=== PATIENT | male | born 1940 | race Caucasian/White ===

== ENCOUNTER → 2021-01-05 | Outpatient (CLI) | payer MEDICARE, SELFPAY ==
--- NOTE | 2021-01-05 | GASB_PTH ---
PATIENT: DANETTE SY Jr. LOC: [facility]#:[id number] AGE/SX: 80/M ROOM: RE01/05/[address]: Dr. Amilcar Sanchez MD : 1940 BED: DIS: 01/05/2021 SPEC #: [id number] RECD: 01/05/21 15:18 STATUS: MEREDITH RESherrie #: [id number] KELI: 01/05/21 00:[address]: Amilcar Sanchez DEPT: SURGICAL PATHOLOGY RECD BY: Corby Macias Tissues: A - Gastric mucous membrane B - Gastric mucous membrane C - Gastric mucous membrane Procedures: Special Stain Group II Surgery Specimen Level IV Alcian Blue/PAS (control) HEADER OPERATION: EGD with biopsy PRE-OP DIAGNOSIS: Duodenal nodes on CT scan TISSUE SUBMITTED: A ? Ampulla biopsy, B ? Antral biopsy H/H, C ? Gastric nodule MICROSCOPIC DIAGNOSIS A. Ampulla, biopsy: A fragment of duodenal mucosa, no pathologic diagnosis. B. Antral biopsy: Mild gastritis. Focal intestinal metaplasia. See microscopic description and comment. C. Gastric nodule: A fragment of gastric mucosa with acute and chronic inflammation and lymphoid aggregate, favor benign. Focal changes suggestive of mixed hyperplastic/fundic gland polyp. See comment. SJ:rg 01/07/2021 COMMENT B. The results of immunohistochemistry for Helicobacter pylori will be reported separately ([id number]). Alcian blue/PAS stain with matched control is used in the evaluation of the specimen. C. Immunohistochemistry ([id number]) supports the above diagnosis. Correlation with clinical, radiologic, endoscopic findings and appropriate follow up are necessary. Case has been reviewed in consultation with Dr. Richards who concurs with the above diagnosis. IDC:AM MICROSCOPIC DESCRIPTION Slides are reviewed. B. The specimen shows fragments of gastric mucosa with chronic inflammatory cell infiltrates in the lamina propria consisting of lymphocytes and plasma cells, consistent with mild chronic gastritis. Focal intestinal metaplasia is noted. GROSS DESCRIPTION A - Received in fixative is one container labeled with the patient's name and designated ampulla biopsy. The specimen consists of one irregular fragment of light menchaca soft tissue that measures 0.4 x 0.3 x 0.1 cm. The specimen is totally submitted in one cassette. B - Received in fixative is one container labeled with the patient's name and designated antral biopsy. The specimen consists of two irregular fragments of light menchaca soft tissue that in aggregate measure 0.6 x 0.2 x 0.1 cm. The specimen is totally submitted in one cassette. C - Received in fixative is one container labeled with the patient's name and designated gastric nodule. The specimen consists of one irregular fragment of light menchaca soft tissue that measures 0.3 x 0.3 x 0.1 cm. The specimen is totally submitted in one cassette. / SJ:rg 01/06/21 TC:5 CPT: 35811 x3, 85304
--- NOTE | 2021-01-05 11:00 | IMM_PTH ---
PATIENT: DANETTE SY Jr. LOC: [facility] U#:[id number] AGE/SX: 80/M ROOM: RE01/05/[address]: Dr. Amilcar Sanchez MD : 1940 BED: DIS: 01/05/2021 SPEC #: [id number] RECD: 01/06/21 09:38 STATUS: MEREDITH REQ #: [id number] KELI: 01/05/21 11:[address]: Amilcar Sanchez DEPT: IMMUNOHISTOCHEMISTRY RECD BY: Kimmy Duque Tissues: B - Stomach, NOS C - Gastric mucous membrane Procedures: H Pylori (initial) CD20 (add) CD45 (add) CD5 (add) CD79A (add) CD3 (initial) PHYSICIAN & INSTITUTION [place] [id number] SPECIMEN INFORMATION: Tissue Source: B ? Antral biopsy, C ? Gastric nodule Clinical Info: Duodenal nodes on CT scan Specimen Number: [id number] B & C CPT code: 98530 x2, 40389 x4 METHODOLOGY: Deparaffinized sections of prefer/formalin-fixed tissue or PAP/DQ stained slides are incubated with monoclonal/polyclonal antibodies/oligonucleotide probes. Localization is made via biotin free immunoperoxidase method. Appropriate controls are performed and reacted as expected. Results on target cell population are indicated in the following table: RESULTS: ANTIBODY / CLONE RESULT Block B H Pylori (polyclonal) negative Block C CD3 (PS1) positive CD5 (SP10) positive CD20 (L26) positive CD45 (RP2/18) positive CD79a (11E3) positive These tests were developed and their performance characteristics determined by [facility]. They may not have been cleared or approved by the U.S. Food and Drug Administration. The FDA has determined that such clearance or approval is not necessary. The above immunohistochemical/dualISH markers are ordered and reviewed by the pathologist. INTERPRETATION: B. Antral biopsy: Negative for Helicobacter pylori organisms. C. Gastric nodule: Lymphoid aggregate, polytypic in nature, favor benign. SJ:adis 01/08/2021
== END | disposition home or self-care (01) ==
PROVIDERS: Visit Provider Surgery
DX: K29.70 Gastritis, unspecified, without bleeding (principal)
CPT/HCPCS: 88305; 88313; 88341; 88342

== ENCOUNTER 2021-07-06 12:02 | Day surgery (SDC) | payer MEDICARE, SELFPAY ==
[2021-07-06] VITALS (7 sets, daily range): BP systolic 132–143; BP diastolic 58–74; PULSE 56–65; RESP 14–20; TEMP 36.3–36.9; O2SAT 93–95; BMI 31.1
--- NOTE | 2021-07-06 07:24 | PCM.HP.BLA ---
History and Physical Date of Admission: 07/06/21 HISTORY AND PHYSICAL ? Carlos Locke 1940 ? REFERRING PHYSICIAN: Odilia Evans MD CHIEF COMPLAINT: left pleural effusion ? 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 The patient is s/p left sided thoracocentesis done on 06/29/2021 with drainage of about 1 liter of fluid according to patient's son. The patient does complain of shortness of breath, his oxygen saturation is 95% on RA here in the office. He has chronic anemia, last Hgb was 11, with platelet count of 246K. He has chronic renal insufficiency, last creatinine was 2.18. PAST MEDICAL HISTORY ? Anemia of chronic disease ? ? Chronic sinusitis 05/25/2020 ? CLL (chronic lymphocytic leukemia) (HCC) ? ? [place] of toe 10/29/2015 ? Coronary artery disease ? ? Deafness ? ? left ear ? Hearing aid worn ? ? right ear ? Hydrocephalus (HCC) ? ? s/p DELIVERY AND MAIL SORTER Shunt ? Hypertension ? ? 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 Kidney stones 05/25/2020 ? Myocardial infarction (HCC) 01/23/2019 ? NPH (normal pressure hydrocephalus) (HCC) ? ? Seizure (HCC) ? ? Stage 4 chronic kidney disease (HCC) ? ? Subdural hematoma, acute (HCC) ? ? Thyroid disease ? ? Type 2 diabetes mellitus with stage 4 chronic kidney disease, with long-term current use of insulin (HCC) ? ? 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 AMPUTATION TOE,MT-P JT ? ? ? CHOLECYSTECTOMY HX ? ? ? EGD W/O OR W/BRUSH/WASH ? 01/05/2021 ? HEART SURGERY HX ? 2009 ? ILEOSTOMY HX ? ? ? JOINT REPLACEMENT HX ? ? ? LAP PLACEMENT OF DELIVERY AND MAIL SORTER SHUNT Right 11/2018 ? Codman Hakim Valve ? ORTHOPEDICS SURGERY HX ? ? ? PAST SURGICAL HISTORY OF ? 06/2016 ? Gamma Knife Radiosurgery for L Vestibular schwannoma ? SKIN BIOPSY HX ? ? ? TONSILLECTOMY HX ? ? Current Outpatient Medications ? tamsulosin (FLOMAX) 0.4 mg TAKE 1 CAPSULE BY MOUTH ONCE DAILY 1/2 HOUR FOLLOWING THE SAME MEAL EACH DAY ? HUMALOG U-100 INSULIN 100 unit/mL injection Inject 15 Units subcutaneously at breakfast and lunch, 20 units at supper.. ? iron polysaccharide complex (FERRIC X-150) 150 mg iron capsule Take 1 capsule by mouth twice daily. ? ibrutinib (IMBRUVICA) 420 mg tablet Take 1 tablet (420 mg) by mouth once daily with water. ? Insulin Syringe-Needle U-100 (TRUEPLUS INSULIN) 0.3 mL 31 gauge x 5/16 use for insulin injections FOUR TIMES DAILY ? amLODIPine (NORVASC) 10 mg tablet Take 1 tablet by mouth once daily. ? rOPINIRole (REQUIP) 0.25 mg tablet Take 1 tablet by mouth twice daily. (Patient taking differently: Take 0.25 mg by mouth twice daily. PRN ? allopurinol (ZYLOPRIM) 100 mg tablet Take 1 tablet by mouth once daily. ? sodium bicarbonate 650 mg tablet Take 650 mg by mouth twice daily. 3 tablets 2x day ? Adhesive Remover (ALLPolyplexE ADHESIVE REMOVER WIPES) pack 1 application once daily. ? polyvinyl alcohol-povidone (REFRESH) 1.4-0.6 % ophthalmic solution Use 2 Drops in the left eye every 2 hours while awake. ? white petrolatum-mineral Oil (LUBRIFRESH P.M.) 83-15 % oint Apply to left eye as written in your discharge instructions ? potassium chloride ER (KLOR-CON M20) 20 mEq tablet Take 2 tablets by mouth once daily. ? rosuvastatin (CRESTOR) 5 mg tablet TAKE ONE TABLET BY MOUTH EVERY DAY AT BEDTIME ? carvedilol (COREG) 12.5 mg tablet Take 1 tablet by mouth twice daily. ? pantoprazole DR (PROTONIX) 40 mg tablet Take 1 tablet by mouth once daily. ? levothyroxine (SYNTHROID) 75 mcg tablet Take 1 tablet by mouth once daily. ? cholecalciferol (VITAMIN D3) 1,000 unit tab tablet Take 1,000 Units by mouth once daily. ? TRESIBA FLEXTOUCH U-200 200 unit/mL (3 mL) injection Inject 30 Units subcutaneously daily at bedtime. ? levETIRAcetam (KEPPRA) 750 mg tablet Take 1 tablet by mouth twice daily. ? ALLERGIES: Atorvastatin ? PERSONAL HISTORY: Smoking status: Former SmokerTypes: Cigarettes Smokeless tobacco: Never Used Tobacco comment: Smoked while in collegeVaping Use Vaping Use: Never used Substance Use Topics Alcohol use: Not Currently Drug use: Never FAMILY HISTORY Hypertension Mother ? Alzheimer's Disease Mother ? Heart disease Mother ? Hypertension Father ? Hyperlipidemia Father ? Heart Father ? Leukemia Brother COD ? Nursing Notes: Mattie Veronica RN 07/05/2021 1:37 PM Signed REVIEW OF SYSTEMS: General: The patient NOTES fatigue, denies weight loss, denies weight gain, denies feeling hot, and denies feelings of cold. Eyes: The patient denies glaucoma, denies eye injury/surgery, wears glasses or contacts. Ear/Nose/Throat: The patient NOTES allergies, denies hayfever, denies ear infections, and denies bloody noses. Cardiovascular: The patient denies chest pain, NOTES heart disease, NOTES high blood pressure,denies cardiac stent, NOTES prior heart attack, denies irregular heart beat, NOTES high cholesterol, denies poor circulation, denies heart failure, other cardiac issues, denies claudication, denies cold feet, denies peripheral arterial stent. Respiratory: The patient denies tuberculosis, denies pneumonia, denies frequent cough, denies pulmonary embolism, denies shortness of breath, and denies coughing up blood. Gastrointestinal: The patient denies difficulty swallowing, denies acid reflux, denies ulcers, denies vomiting, denies jaundice/hepatitis, NOTES gallbladder problems, denies black or tarry stools, denies hemorrhoids, denies bleeding from rectum, denies diverticulitis, denies constipation, denies diarrhea, denies loss of stool control, and denies hernias. Kidney/Bladder: The patient NOTES kidney stones, NOTES urine infections, and denies bloody urine. Skin: The patient denies a history of skin cancer, denies bleeding/changing moles, and denies a history of skin rash. Neurologic: The patient NOTES a history of epilepsy/convulsions, denies headaches, denies head/spinal injuries, and NOTES stroke/TIA. Psychiatric: The patient denies psychiatric medications, denies depression, and denies voices, denies substance abuse. Endocrine: The patient NOTES thyroid disorders, NOTES diabetes, and denies hormonal problems. Hematologic: The patient NOTES a history of bruising, denies bleeding, and NOTES anemia, denies blood clots. Infections: The patient denies a history of measles and mumps, denies rheumatic fever, and denies sexually transmitted diseases. Musculoskeletal: The patient denies back pain/injury, denies back problems, denies sciatica, denies knee/foot trouble, NOTES arthritis, or denies gout. When was patient's last Mammogram screening? N/A Last Colonoscopy: Unknown Mattie Veronica RN ? PHYSICAL EXAMINATION: General: The patient is frail appearing 80 year old male, well nourished in no acute distress. The patient is oriented to time, place, and person. VITALS: Blood pressure 120/60, pulse 63, temperature 37.5 ?C (99.5 ?F), height 165.1 cm (5' 5), weight 83.9 kg (185 lb), SpO2 96 %. Body mass index is 30.79 kg/m?. Head ? Normocephalic. EOM intact with sclera clear and no icterus noted. Neck - supple with bulky adenopathy. Trachea is midline. Lungs ? normal respiratory excursion. No labored breathing noted, such as retractions. No cough heard. Abdomen ? benign appearing. Extremities ? no pitting edema noted. Skin ? normal skin integrity. Neurological ? walks with assistance of walker, no focal deficits noted. Psych ? calm and appropriate ? IMPRESSION: chronic left pleural effusion, likely malignant ? PLAN: I have discussed the above with the patient and his son who is present with him. I have reviewed the chest radiographs. I have offered placement of left pleurX catheter. I have explained the procedure to the patient. I have counseled the patient as to the risks of the procedure, including but not limited to: infection, bleeding, injury to any blood vessels/nerves, scar tissue, injury to the lungs, infection to the lung, complications of anesthesia, etc. ? the patient understands. The patient wishes to proceed. I have answered all questions to the patient?s satisfaction and the patient has no further questions. Diagnoses: (J91.0) Pleural effusion, malignant (primary encounter diagnosis) ? Tonja Sutherland MD
[2021-07-06] MEDS: Lactated Ringers 1,000 ML 75 ML IV (07:30)
[2021-07-06 13:56] LABS: Bedside Glucose 154 mg/dL (70-110)
[2021-07-06] MEDS: Cefazolin 2 GM in 0.9% Normal Saline 100 ML IV (14:12)
[2021-07-06] MEDS: Lidocaine 1% /Epi 1:100 (20ml) 20 ML Vial (14:15)
--- NOTE | 2021-07-06 14:46 | PCM.OPRPT ---
Report of Operation Date of Procedure: 07/06/21 Pre-Operative Diagnosis: chronic left pleural effusion Post-Operative Diagnosis: same Surgery/Procedure Performed:: placement of left sided PleurX catheter Description of Surgical Findings:: 2 liters of serosanguinous fluid drained Surgeon: Tonja Sutherland Type of Anesthesia: MAC/Supplemental/Local Anesthesiologist: Luis M Mcpherson Specimen's removed: 2 liters of left pleural fluids Estimated Blood Loss (mL): < 10 ml Fluids Replaced: 400 ml RL Description of Procedure: After informed consent was obtained, the patient was brought to the Operating Room. Appropriate time out protocol was followed. He was placed in the supine position. The patient was then placed under anesthesia. The US machine was brought in for real time imaging. The area of pleural fluid was identified by US and marked out on the patient's skin. The left chest was then prepped with a sterile surgical skin preparation. Sterile surgical drapes were placed. This skin and subcutaneous tissues were then widely infiltrated with the local anesthetic at the previous identified location and then medial to this where the catheter would be tunneled and then exiting. At the previous marked out site for entrance into the pleural cavity, a skin incision was then made with an 11 blade. The needle with sheath catheter attached was then inserted above the rib and into the pleural cavity, and there was aspiration of pleural fluid. The needle was then removed and the wire was then threaded into the catheter without difficulty. An exit incision for the PleurX catheter was then made with a 15 blade scalpel. The PleurX catheter was then directed into this incision with the tunneling device and then was tunneled to the wire exit site. It was placed so that the cuff was within the subcutaneous tissues. The dilator was then placed over the wire into the pleural space and then withdrawn. The next sized dilator with introducer sheath was then placed over the wire into the pleural space. The dilator and wire were removed and the PleurX catheter was then placed into the pleural space via the introducer sheath. The introducer sheath was then removed. The PleurX catheter was attached to the extra tubing and then connected to a needle to be inserted into a vacuum container. Pleural fluid was obtained and a total of 2 liters was removed, it was serosanguinous. The PleurX catheter was then locked. It was sutured to the skin using silk suture. The skin incisions were reapproximated using 4-0 vicryl in a subcuticular fashion. Steristrips were applied to reinforce the skin closures. Sponge, instrument and suture count was verified and found to be correct. Sterile dressings were applied. Patient tolerated procedure well and was brought to the Recovery Room in stable condition.
--- NOTE | 2021-07-06 14:50 | RAD_ITS ---
HISTORY: placement of PleurX catheter in left chest EXAMINATION/TECHNIQUE: XR Chest 1 View: Pleural upright AP chest x-ray COMPARISON: None FINDINGS: LINES/DEVICES: Left sided chest tube coils at the lung base. Right-sided shunt catheter tubing over the neck, chest and upper abdomen. LUNGS: Opacification of the left mid and lower lung field with adjacent airspace disease. No pneumothorax. MEDIASTINUM AND CARDIOVASCULAR STRUCTURES: Cardiac silhouette not enlarged. BONES AND SOFT TISSUES: No acute bony abnormalities. RAD/CXR for Line Placement IMPRESSION: Large left pleural effusion with left sided drainage catheter in place. at 1637 Reported and signed by: Vik Girard MD Electronically Signed: Vik Girard MD at 16:36 EST Tel , Service support ,
--- NOTE | 2021-07-06 15:21 | DCINST_ITS ---
Discharge Instructions Follow Up Care Test Results: Test results from this visit will be discussed in further detail at your follow-up appointment, if applicable. Discharge Plan Admission Attending Provider: Tonja Sutherland Primary Care Provider: Joan Chávez [facility] ADMINISTRATOR Instructions Additional Instructions / Restrictions: Recommended pain control regimen - May take 600 mg ibuprofen (Motrin) and then in 3-4 hours, may take 650 mg acetaminophen (Tylenol), then in 3-4 hours may take 600 mg ibuprofen, then in 3- 4 hours may take 650 mg acetaminophen and so on for 2-3 days May take narcotic pain medication for pain that is not controlled by above and at night for comfort through the night Leave dressings in place May take shower, cover drain site with towel or other such covering to prevent from getting overly wet Do not soak - no tub baths/swimming Please call my office for an appointment to see me on Monday. Office number is If any questions, please call my office at and ask the sterilizer machine operator for the general surgery nurses desk Discharge Orders/Prescriptions Prescriptions: New hydrocodone-acetaminophen 5-325 mg tablet 1 tab PO Q8H 3 Days Qty: 9 RF: 0 No Action furosemide 40 mg tablet 20 mg PO PRN PRN (Reason: SWELLING) RF: 0 carvedilol 12.5 mg tablet 12.5 mg PO BID RF: 0 levetiracetam [Keppra] 500 mg tablet 750 mg PO BID RF: 0 hydrocodone-acetaminophen 5-325 mg tablet 1 - 2 tab PO PRN PRN (Reason: Pain) RF: 0 polysaccharide iron complex [Ferric x-150] 150 mg iron capsule 150 mg PO BID RF: 0 allopurinol 100 mg tablet 100 mg PO DAILY RF: 0 acetaminophen [Tylenol Arthritis] 650 mg Tablet Extended Release 650 mg PO Q12H PRN (Reason: Pain) RF: 0 levothyroxine 75 mcg tablet 75 mcg PO DAILY RF: 0 potassium chloride 20 mEq tablet,ER particles/crystals 40 meq PO DAILY RF: 0 tamsulosin 0.4 mg capsule 0.4 mg PO DAILY RF: 0 ropinirole 0.25 mg tablet 0.25 mg PO PRN PRN (Reason: RESTLESS LEGS) RF: 0 sodium bicarbonate 650 mg tablet 1,950 mg PO DAILY RF: 0 amlodipine 10 mg tablet 10 mg PO DAILY RF: 0 pantoprazole 40 mg tablet,delayed release (DR/EC) 40 mg PO DAILY RF: 0 gabapentin 100 mg capsule 200 mg PO DAILY RF: 0 insulin lispro [Humalog U-100 Insulin] 100 unit/mL solution 10 - 15 unit subcut TID RF: 0 rosuvastatin 5 mg tablet 5 mg PO QHS RF: 0 cholecalciferol (vitamin D3) [Vitamin D3] 25 mcg (1,000 unit) Tablet 25 mcg PO DAILY RF: 0 Tresiba FlexTouch U-200 200 unit/mL (3 mL) insulin pen 12 unit SUBCUT QHS RF: 0 Imbruvica 420 mg tablet 420 mg PO DAILY RF: 0 Referrals / Follow Up: Joan Chávez NP, SURGERY CENTER ADMINISTRATOR-C [Primary Care Provider] - Disposition Disposition (needs filled in before D/C Order can be placed): Home, Self Care
[2021-07-06] MEDS: HYDROcodone Bitartrate/Apap 5/325 Tablet PO (15:56)
== END 2021-07-06 16:15 | disposition home or self-care (01) ==
LOC: SDC 12:05 → AC 12:07
PROVIDERS: PCP Nurse Practitioner Adult Health; Referring Provider Surgery; Visit Provider Surgery
PROC: (CPT 32550; principal; 2021-07-06 13:50)
DX: C91.10 Chronic lymphocytic leukemia of B-cell type not having achieved remission (principal); J91.0 Malignant pleural effusion; I25.10 Atherosclerotic heart disease of native coronary artery without angina pectoris; I25.2 Old myocardial infarction; E07.9 Disorder of thyroid, unspecified; E11.22 Type 2 diabetes mellitus with diabetic chronic kidney disease; I12.9 Hypertensive chronic kidney disease with stage 1 through stage 4 chronic kidney disease, or unspecified chronic kidney disease; D63.8 Anemia in other chronic diseases classified elsewhere; N18.4 Chronic kidney disease, stage 4 (severe); G91.2 (Idiopathic) normal pressure hydrocephalus; G40.909 Epilepsy, unspecified, not intractable, without status epilepticus; N40.0 Benign prostatic hyperplasia without lower urinary tract symptoms; E78.00 Pure hypercholesterolemia, unspecified; G25.81 Restless legs syndrome; M06.9 Rheumatoid arthritis, unspecified; G47.30 Sleep apnea, unspecified; Z86.73 Personal history of transient ischemic attack (TIA), and cerebral infarction without residual deficits; Z79.4 Long term (current) use of insulin; Z79.899 Other long term (current) drug therapy; Z87.442 Personal history of urinary calculi; F17.200 Nicotine dependence, unspecified, uncomplicated
CPT/HCPCS: 00524; 32556; 71045; 82962; J7120; C1729